=== PATIENT | female | born 1950 | race Caucasian/White ===

== ENCOUNTER → 2017-10-14 10:17 | Outpatient (CLI) | payer MEDICARE, SELFPAY ==
--- NOTE | 2017-10-14 10:23 | MM_ITS ---
MM Dig screening mamm BI w/CAD CAD Screening TECHNIQUE: Standard CC and MLO images were obtained. R2 CAD reviewed. ORDERING PHYSICIAN : Srinivasan Hsu PATIENT AGE: 67 years GENDER: Female COMPARISON: Previous mammograms: July 2011, March 2016, September 2016 INDICATION: Routine screening no hormones. No new complaints. Previous benign excisional biopsy left breast. Noncontributory family history ===== FINDINGS: Large low-density breast with no dominant mass.. Are scattered small calcifications a small grouping of calcifications but these appear to be fairly stable benign calcifications can be followed annually. RIGHT BREAST:No significant new findings.. Follow-up in one year adequate LEFT BREAST:No significant new findings. The minimal nodularity retroareolar left is similar to previous studies dating back to 2011 and as well as similar feature on 2016 2015 mammograms. Bilateral follow-up one year adequate IMPRESSION: No new findings of significant concern . Scattered small areas calcifications both breast appear to be fairly stable & appear to be benign character. Can be followed safely. Scattered minimal, small areas of density bilaterally similar to previous studies and can be followed. Would recommend, encourage and emphasized, annual follow-up mammography BI-RADS Category: 2 Benign Finding(s) RECOMMENDED FOLLOW-UP: 1YR - 1 YEAR FOLLOW-UP (A letter has been sent to the patient regarding results of the study.)
== END ==
PROVIDERS: PCP Internal Medicine; Visit Provider Internal Medicine
DX: Z12.31 Encounter for screening mammogram for malignant neoplasm of breast (principal)
CPT/HCPCS: 77067

== ENCOUNTER → 2018-04-25 08:24 | Outpatient (CLI) | payer MEDICARE, SELFPAY ==
[2018-04-25 09:41] LABS: Basophils # 0.1 K/mm3 (0-0.2); Basophils % 0.4 % (0.1-2.0); Eosinophils # 0.4 K/mm3 (0.0-0.4); Eosinophils % 3.4 % (0.1-12.0); Hematocrit 44.1 % (37.0-47.0); Hemoglobin 14.3 g/dL (12.2-16.2); Lymphocytes # 1.3 K/mm3 (0.7-4.5); Lymphocytes % 11.8 K/mm3 (10-50); Mean Corpuscular HGB Conc 32.4 g/dL (31.8-35.4); Mean Corpuscular Hemoglobin 31.2 pg (27.0-31.2); Mean Corpuscular Volume 96.5 fl (81-99); Mean Platelet Volume 8.4 fl (7.4-10.4); Monocytes # 0.4 K/mm3 (0.1-1.0); Monocytes % 3.4 % (1.7-9.3); Neutrophils # 9.2 K/mm3 (1.8-7.8); Platelet Count 272 K/mm3 (142-424); Red Blood Count 4.57 M/mm3 (4.20-5.40); Red Cell Distribution Width 13.1 % (11.5-17.5); White Blood Count 11.4 K/mm3 (4.8-10.8)
[2018-04-25 10:32] LABS: Alanine Aminotransferase 28 U/L (12-78); Albumin Level 3.4 gm/dL (3.4-5.0); Albumin/Globulin Ratio 1.1 (1.1-1.8); Alkaline Phosphatase 106 U/L (46-116); Anion Gap 15.3 mEq/L (5-15); Aspartate Amino Transferase 12 U/L (15-37); Bilirubin,Total 0.6 mg/dL (0.2-1.0); Blood Urea Nitrogen 27 mg/dL (7-18); Calcium 9.1 mg/dL (8.5-10.1); Carbon Dioxide 25 mmol/L (21.0-32.0); Chloride 105 mmol/L (98-107); Cholesterol 168 mg/dL (140-200); Creatinine,Serum 1.24 mg/dL (0.55-1.02); Estimated Glomerular Filt Rate 43 ml/min (>60); GFR (African American) 52 ML/MIN (>60); Glucose 107 mg/dL (74-106); HDL Cholesterol 56 mg/dL (29-89); LDL Cholesterol 97 mg/dL (0-130); Potassium 4.3 mmoL/L (3.5-5.1); Sodium 141 mmol/L (136-145); Total Protein,Serum 6.4 gm/dL (6.4-8.2); Triglycerides 73 mg/dL (30-200); VLDL Cholesterol 15 mg/dL (0-40)
== END ==
PROVIDERS: PCP Internal Medicine; Visit Provider Internal Medicine
DX: I10 Essential (primary) hypertension (principal); M16.0 Bilateral primary osteoarthritis of hip; M17.0 Bilateral primary osteoarthritis of knee; Z85.42 Personal history of malignant neoplasm of other parts of uterus; Z79.899 Other long term (current) drug therapy
CPT/HCPCS: 36415; 80053; 80061; 85025

== ENCOUNTER → 2018-10-17 08:21 | Outpatient (CLI) | payer MEDICARE, SELFPAY ==
--- NOTE | 2018-10-17 08:25 | MM_ITS ---
MM Dig screening mamm BI w/CAD ORDERING PHYSICIAN : Srinivasan Hsu PATIENT AGE: 68 years GENDER: Female COMPARISON: September 2017, 2016, March 2016 INDICATION: Routine: SCREENING . No hormones. No new complaints. Noncontributory family history TECHNIQUE: Standard CC and MLO images were obtained. R2 CAD reviewed. Due to the large volume breast, multiple CC and MLO views of both breasts were included to fully image both right and left breast additional nipple profile view right breast included FINDINGS: Mild to moderate residual fibroglandular elements with lower density large breasts bilaterally. Scattered small areas of calcifica fall, region tions in both breast appear to be benign and fairly round punctate calcifications with no significant new features. Bilateral follow-up in one year adequate RIGHT BREAST:No new areas of significant concern The small nodular density at the medial retroareolar region with no significant change since 2016 study. Minimal residual fibroglandular elements LEFT BREAST:No new areas of significant concern . IMPRESSION: No new areas of significant concern Bilateral follow-up in one year recommended BI-RADS Category: 2 Benign Finding(s) RECOMMENDED FOLLOW-UP: 1YR 1 YEAR FOLLOW-UP (A letter has been sent to the patient regarding results of the study.)
== END ==
PROVIDERS: PCP Internal Medicine; Visit Provider Internal Medicine
DX: Z12.31 Encounter for screening mammogram for malignant neoplasm of breast (principal)
CPT/HCPCS: 77067

== ENCOUNTER → 2020-05-19 08:46 | Outpatient (CLI) | payer MEDICARE, SELFPAY ==
--- NOTE | 2020-05-19 08:52 | MM_ITS ---
PROCEDURE: MM DIG SCREENING MAMM BI W/CAD Digital Breast Tomosynthesis Included CLINICAL INDICATION: SCREENING There is no personal or family history of breast cancer. COMPARISON: MG DMSB DIG MAMM-SCREEN MO W/CAD from 10/08/2016 MG SCBI MM Dig screening mamm BI w/CAD from 10/14/2017 MG SCBI MM Dig screening mamm BI w/CAD from 10/17/2018 TECHNIQUE: Standard CC and MLO images and 3D Tomosynthesis was obtained. R2 CAD reviewed. FINDINGS: Shattered fibroglandular densities are seen throughout both breast. There are scattered benign-appearing microcalcifications in each breast. There is a mole marker right breast. There is a stable asymmetric somewhat linear density deep to the nipple right breast. There is no suspicious lesion and no suspicious microcalcifications. IMPRESSION: Fibrofatty parenchyma with no suspicious lesions seen BI-RAD Category: 2 Benign Finding(s) FOLLOW-UP: 1YR 1 Year Follow-up (A letter has been sent to the patient regarding results of the study.) Dictated by: Dr. Jem Mckay MD 05/24/2020 13:39 Dr. Jem Mckay MD in [place] 05/24/2020 13:39
== END ==
PROVIDERS: PCP Internal Medicine; Visit Provider Internal Medicine
DX: Z12.31 Encounter for screening mammogram for malignant neoplasm of breast (principal)
CPT/HCPCS: 77063; 77067

== ENCOUNTER → 2021-04-18 09:46 | Outpatient (CLI) | payer MEDICARE, SELFPAY ==
[2021-04-18 16:26] LABS: Alanine Aminotransferase 20 U/L (12-78); Albumin/Globulin Ratio 1.7 (1.1-1.8); Alkaline Phosphatase 114 U/L (38-126); Anion Gap 16.4 mEq/L (5-15); Aspartate Amino Transferase 25 U/L (14-36); Bilirubin,Total 0.6 mg/dl (0.2-1.3); Blood Urea Nitrogen 17 mg/dl (7-17); Calcium 9.9 mg/dl (8.4-10.2); Carbon Dioxide 21 mmol/L (22.0-30.0); Chloride 106 mmol/L (98-107); Chol/HDL Ratio 1.8 (1-3.5); Cholesterol 149 mg/dl (140-200); Estimated Glomerular Filt Rate 55 ml/min (>60); GFR (African American) 66 ML/MIN (>60); Globulin 2.4 g/dL (1.3-3.2); Glucose 114 mg/dl (74-100); HDL Cholesterol 83 mg/dl (40-60); Potassium 4.4 mmoL/L (3.5-5.1); Sodium 139 mmol/L (136-145); Total Protein,Serum 6.4 g/dl (6.3-8.2); Triglycerides 88 mg/dl (30-150); Uric Acid 8.6 mg/dl (2.5-6.2); VLDL Cholesterol 18 mg/dL (0-40)
[2021-04-18 16:37] LABS: Direct LDL Cholesterol 57.13 mg/dL (100-129)
== END ==
PROVIDERS: Visit Provider Internal Medicine
DX: I10 Essential (primary) hypertension (principal); E78.5 Hyperlipidemia, unspecified; M10.9 Gout, unspecified
CPT/HCPCS: 36415; 80053; 80061; 84550

== ENCOUNTER → 2021-05-22 12:55 | Outpatient (CLI) | payer MEDICARE, SELFPAY ==
--- NOTE | 2021-05-22 12:58 | MM_ITS ---
PROCEDURE: MM DIG SCREENING MAMM BI W/CAD Digital Breast Tomosynthesis Included CLINICAL INDICATION: SCREENING There is no personal or family history of breast cancer. There has been a previous biopsy left breast for benign disease. COMPARISON: MG SCBI MM Dig screening mamm BI w/CAD from 10/14/2017 MG SCBI MM Dig screening mamm BI w/CAD from 10/17/2018 MG MM DIG SCREENING MAMM BI W/CAD from 05/19/2020 TECHNIQUE: Standard CC and MLO images and 3D Tomosynthesis was obtained. R2 CAD reviewed. FINDINGS: The breasts are large and diffuse fibroglandular densities are seen throughout both breasts. The findings are fairly symmetrical bilaterally. There are scattered benign-appearing microcalcifications in each breast. There is a mole marker near the axillary tail right breast. CAD markings were reviewed and they appear to be benign. There is no suspicious lesion in either breast and no suspicious microcalcifications. IMPRESSION: Fibrofatty parenchyma with no suspicious lesions seen BI-RAD Category: 2 Benign Finding(s) FOLLOW-UP: 1YR 1 Year Follow-up (A letter has been sent to the patient regarding results of the study.) Dictated by: Dr. Jem Mckay MD 05/24/2021 14:51 Dr. Jem Mckay MD in [place] 05/24/2021 14:51
== END ==
PROVIDERS: PCP Internal Medicine; Visit Provider Internal Medicine
DX: Z12.31 Encounter for screening mammogram for malignant neoplasm of breast (principal)
CPT/HCPCS: 77063; 77067

== ENCOUNTER → 2021-10-16 13:49 | Outpatient (CLI) | payer MEDICARE, SELFPAY ==
[2021-10-16 14:55] LABS: Basophils % 0.5 % (0.1-2.0); Eosinophils # 0.1 K/mm3 (0.0-0.4); Eosinophils % 1.2 % (0.1-12.0); Hematocrit 42.1 % (37.0-47.0); Hemoglobin 13.2 g/dL (12.2-16.2); Lymphocytes # 1.5 K/mm3 (0.7-4.5); Lymphocytes % 22.3 % (10-50); Mean Corpuscular HGB Conc 31.4 g/dL (31.8-35.4); Mean Corpuscular Hemoglobin 31.8 pg (27.0-31.2); Mean Corpuscular Volume 101.4 fl (81-99); Mean Platelet Volume 10.3 fl (7.4-10.4); Monocytes # 0.4 K/mm3 (0.1-1.0); Monocytes % 5.2 % (1.7-9.3); Neutrophils # 4.9 K/mm3 (1.8-7.8); Neutrophils % 70.8 % (37.0-80.0); Platelet Count 294 K/mm3 (142-424); Red Blood Count 4.16 M/mm3 (4.20-5.40); Red Cell Distribution Width 13.7 % (11.5-17.5); White Blood Count 6.9 K/mm3 (4.8-10.8)
[2021-10-16 15:49] LABS: Alanine Aminotransferase 19 U/L (12-78); Albumin/Globulin Ratio 2.1 (1.1-1.8); Alkaline Phosphatase 100 U/L (38-126); Anion Gap 13.4 mEq/L (5-15); Aspartate Amino Transferase 23 U/L (14-36); Bilirubin,Total 0.7 mg/dl (0.2-1.3); Blood Urea Nitrogen 22 mg/dl (7-17); Calcium 9.5 mg/dl (8.4-10.2); Carbon Dioxide 21 mmol/L (22.0-30.0); Chloride 107 mmol/L (98-107); Cholesterol 143 mg/dl (140-200); Estimated Glomerular Filt Rate 40 ml/min (>60); GFR (African American) 49 ML/MIN (>60); Globulin 1.9 g/dL (1.3-3.2); Glucose 98 mg/dl (74-100); HDL Cholesterol 70 mg/dl (40-60); Potassium 4.4 mmoL/L (3.5-5.1); Sodium 137 mmol/L (136-145); Total Protein,Serum 5.9 g/dl (6.3-8.2); Triglycerides 73 mg/dl (30-150); VLDL Cholesterol 15 mg/dL (0-40)
[2021-10-16 16:00] LABS: Direct LDL Cholesterol 56.23 mg/dL (100-129)
== END ==
PROVIDERS: Visit Provider Internal Medicine
DX: I10 Essential (primary) hypertension (principal); E78.5 Hyperlipidemia, unspecified; M17.0 Bilateral primary osteoarthritis of knee; M10.9 Gout, unspecified
CPT/HCPCS: 80053; 80061; 84550; 85025

== ENCOUNTER → 2022-04-16 11:47 | Outpatient (CLI) | payer MEDICARE, SELFPAY ==
[2022-04-16 14:22] LABS: Chloride 101 mmol/L (98-107); Potassium 3.9 mmoL/L (3.5-5.1); Sodium 138 mmol/L (136-145)
[2022-04-16 14:24] LABS: Alanine Aminotransferase 18 U/L (12-78); Alkaline Phosphatase 114 U/L (38-126); Aspartate Amino Transferase 23 U/L (14-36); Bilirubin,Total 0.4 mg/dl (0.2-1.3); Blood Urea Nitrogen 27 mg/dl (7-17); Estimated Glomerular Filt Rate 62 ml/min (>60); GFR (African American) 75 ML/MIN (>60)
[2022-04-16 14:25] LABS: Albumin Level 3.9 g/dl (3.5-5.0); Albumin/Globulin Ratio 1.9 (1.1-1.8); Anion Gap 14.9 mEq/L (5-15); Calcium 9.1 mg/dl (8.4-10.2); Carbon Dioxide 26 mmol/L (22.0-30.0); Chol/HDL Ratio 2.1 (1-3.5); Cholesterol 157 mg/dl (140-200); Globulin 2.1 g/dL (1.3-3.2); Glucose 80 mg/dl (74-100); HDL Cholesterol 74 mg/dl (40-60); Triglycerides 95 mg/dl (30-150); VLDL Cholesterol 19 mg/dL (0-40)
[2022-04-16 14:36] LABS: Direct LDL Cholesterol 63.39 mg/dL (100-129)
== END ==
PROVIDERS: PCP Internal Medicine; Visit Provider Internal Medicine
DX: I10 Essential (primary) hypertension (principal); E78.5 Hyperlipidemia, unspecified; M15.0 Primary generalized (osteo)arthritis
CPT/HCPCS: 80053; 80061

== ENCOUNTER → 2022-05-01 08:51 | Outpatient (CLI) | payer MEDICARE, SELFPAY ==
--- NOTE | 2022-05-01 08:55 | XR_ITS ---
FINAL REPORT TECHNIQUE: Bone mineral density was calculated of the lumbar spine and hip. CLINICAL HISTORY: .post menopausal FINDINGS: DEXA BONE DENSITY AXIAL SKELETON Using L1-4, the bone mineral density of the spine is 1.169 g/cm2, corresponding to T-score of 1.1. Using the left hip, the bone mineral density of the femoral neck is 0.885 g/cm2, corresponding to a T-score of 0.3. NOTE: T-score: Standard deviation compared with peak bone mass of young adult mean. *Following the recommendations of the International Society of Bone densitometry, classification of hip BMD is based on the lower of two T-scores; total hip or femoral neck. IMPRESSION: Normal bone mineral density of the lumbar spine and hip. Reviewed, Interpreted and Dictated by Bruce Marcelino III, MD Transcribed by Silvia Mckeon Authenticated and [facility]
== END ==
PROVIDERS: PCP Internal Medicine; Visit Provider Internal Medicine
DX: Z78.0 Asymptomatic menopausal state (principal)
CPT/HCPCS: 77080

== ENCOUNTER → 2022-05-23 15:07 | Outpatient (CLI) | payer MEDICARE, SELFPAY ==
--- NOTE | 2022-05-23 15:11 | MM_ITS ---
PROCEDURE INFORMATION: Exam: MG Bilateral Screening 3D Mammography Exam date and time: 05/23/2022 3:09 PM Age: 71 years old Clinical indication: Screening examination. History of benign left biopsy. No family history of breast cancer. TECHNIQUE: Imaging protocol: Bilateral Screening tomosynthesis and 2D mammography including computer-aided detection (CAD) when performed. COMPARISON: 1. MG MM DIG SCREENING MAMM BI W/CAD 05/22/2021 1:07 PM 2. MG MM DIG SCREENING MAMM BI W/CAD 05/19/2020 9:06 AM 3. MG SCBI MM Dig screening mamm BI w/CAD 10/17/2018 8:41 AM 4. MG SCBI MM Dig screening mamm BI w/CAD 10/14/2017 10:49 AM FINDINGS: MAMMOGRAPHY: Breast composition: There are scattered areas of fibroglandular density. Mass: None. Architectural distortion: None. Calcifications: Extensive bilateral calcifications, more secretory forms on the left than right, with no suspicious clusters. Asymmetric density: No developing asymmetry. Skin thickening: None. Axillary adenopathy: None. IMPRESSION: No mammographic evidence of malignancy. Annual screening is recommended unless otherwise clinically indicated. ASSESSMENT: BI-RADS Category 2: Benign
== END ==
PROVIDERS: PCP Internal Medicine; Visit Provider Internal Medicine
DX: Z12.31 Encounter for screening mammogram for malignant neoplasm of breast (principal)
CPT/HCPCS: 77063; 77067

== ENCOUNTER → 2022-10-15 11:50 | Outpatient (CLI) | payer MEDICARE, SELFPAY ==
[2022-10-15 13:24] LABS: Basophils # 0.1 K/mm3 (0-0.2); Basophils % 0.8 % (0.1-2.0); Eosinophils # 0.1 K/mm3 (0.0-0.4); Eosinophils % 0.8 % (0.1-12.0); Lymphocytes # 1.5 K/mm3 (0.7-4.5); Lymphocytes % 20.2 % (10-50); Mean Corpuscular HGB Conc 32.5 g/dL (31.8-35.4); Mean Corpuscular Hemoglobin 32.2 pg (27.0-31.2); Mean Corpuscular Volume 99.1 fl (81-99); Mean Platelet Volume 10.3 fl (7.4-10.4); Monocytes # 0.3 K/mm3 (0.1-1.0); Monocytes % 4.4 % (1.7-9.3); Neutrophils # 5.4 K/mm3 (1.8-7.8); Neutrophils % 73.8 % (37.0-80.0); Platelet Count 308 K/mm3 (142-424); Red Blood Count 4.34 M/mm3 (4.20-5.40); Red Cell Distribution Width 13.5 % (11.5-17.5); White Blood Count 7.3 K/mm3 (4.8-10.8)
[2022-10-15 13:51] LABS: Alanine Aminotransferase 14 U/L (12-78); Albumin Level 4.2 g/dl (3.5-5.0); Alkaline Phosphatase 111 U/L (38-126); Anion Gap 13.7 mEq/L (5-15); Aspartate Amino Transferase 23 U/L (14-36); Bilirubin,Total 0.9 mg/dl (0.2-1.3); Blood Urea Nitrogen 21 mg/dl (7-17); Calcium 9.4 mg/dl (8.4-10.2); Carbon Dioxide 26 mmol/L (22.0-30.0); Chloride 101 mmol/L (98-107); Chol/HDL Ratio 1.7 (1-3.5); Cholesterol 137 mg/dl (140-200); Estimated Glomerular Filt Rate 55 ml/min (>60); GFR (African American) 66 ML/MIN (>60); Globulin 2.1 g/dL (1.3-3.2); Glucose 95 mg/dl (74-100); HDL Cholesterol 81 mg/dl (40-60); Potassium 4.7 mmoL/L (3.5-5.1); Sodium 136 mmol/L (136-145); Total Protein,Serum 6.3 g/dl (6.3-8.2); Triglycerides 66 mg/dl (30-150); Uric Acid 8.1 mg/dl (2.5-6.2); VLDL Cholesterol 13 mg/dL (0-40)
[2022-10-15 14:01] LABS: Direct LDL Cholesterol 55.44 mg/dL (100-129)
== END ==
PROVIDERS: PCP Internal Medicine; Visit Provider Internal Medicine
DX: I10 Essential (primary) hypertension (principal); E78.5 Hyperlipidemia, unspecified; M10.9 Gout, unspecified; M15.0 Primary generalized (osteo)arthritis
CPT/HCPCS: 80053; 80061; 84550; 85025

== ENCOUNTER → 2023-04-17 16:59 | Outpatient (CLI) | payer MEDICARE, SELFPAY ==
[2023-04-17 20:49] LABS: Anion Gap 17.1 mEq/L (5-15); Blood Urea Nitrogen 16 mg/dl (7-17); Calcium 9.5 mg/dl (8.4-10.2); Carbon Dioxide 26 mmol/L (22.0-30.0); Chloride 100 mmol/L (98-107); Chol/HDL Ratio 1.7 (1-3.5); Cholesterol 149 mg/dl (140-200); Estimated Glomerular Filt Rate 62 ml/min (>60); GFR (African American) 74 ML/MIN (>60); Glucose 73 mg/dl (74-100); HDL Cholesterol 86 mg/dl (40-60); Potassium 5.1 mmoL/L (3.5-5.1); Sodium 138 mmol/L (136-145); Triglycerides 76 mg/dl (30-150); VLDL Cholesterol 15 mg/dL (0-40)
[2023-04-17 21:00] LABS: Direct LDL Cholesterol 62.98 mg/dL (100-129)
== END ==
PROVIDERS: PCP Internal Medicine; Visit Provider Internal Medicine
DX: I10 Essential (primary) hypertension (principal); E78.5 Hyperlipidemia, unspecified; M17.0 Bilateral primary osteoarthritis of knee; Z87.39 Personal history of other diseases of the musculoskeletal system and connective tissue
CPT/HCPCS: 80048; 80061

== ENCOUNTER → 2023-06-06 14:44 | Outpatient (CLI) | payer MEDICARE, SELFPAY ==
--- NOTE | 2023-06-06 14:52 | MM_ITS ---
PROCEDURE INFORMATION: Exam: MG Bilateral Screening 3D Mammography Exam date and time: 06/06/2023 2:42 PM Age: 72 years old Clinical indication: Screening examination TECHNIQUE: Imaging protocol: Bilateral Screening tomosynthesis and 2D mammography including computer-aided detection (CAD) when performed. COMPARISON: 1. MG MM DIG SCREENING MAMM BI W/CAD 05/23/2022 3:09 PM 2. MG MM DIG SCREENING MAMM BI W/CAD 05/22/2021 1:07 PM FINDINGS: MAMMOGRAPHY: Breast composition: There are scattered areas of fibroglandular density. Mass: None. Architectural distortion: Benign postoperative distortion in the left upper breast Calcifications: No suspicious calcifications. Asymmetric density: None. Skin thickening: None. Axillary adenopathy: None. IMPRESSION: No mammographic evidence of malignancy. Annual screening is recommended unless otherwise clinically indicated. ASSESSMENT: BI-RADS Category 2: Benign
== END ==
PROVIDERS: PCP Internal Medicine; Visit Provider Internal Medicine
DX: Z12.31 Encounter for screening mammogram for malignant neoplasm of breast (principal)
CPT/HCPCS: 77063; 77067

== ENCOUNTER 2023-10-16 11:54 | Outpatient (CLI) | payer MEDICARE, SELFPAY ==
[2023-10-16 12:35] LABS: Basophils % 0.5 % (0.1-2.0); Eosinophils % 0.5 % (0.1-12.0); Hematocrit 43.1 % (37.0-47.0); Hemoglobin 14.2 g/dL (12.2-16.2); Lymphocytes % 14.7 % (10-50); Mean Corpuscular HGB Conc 32.9 g/dL (31.8-35.4); Mean Corpuscular Hemoglobin 33.4 pg (27.0-31.2); Mean Corpuscular Volume 101.4 fl (81-99); Mean Platelet Volume 9.4 fl (7.4-10.4); Monocytes # 0.5 K/mm3 (0.1-1.0); Monocytes % 7.4 % (1.7-9.3); Neutrophils % 76.9 % (37.0-80.0); Platelet Count 228 K/mm3 (142-424); Red Blood Count 4.25 M/mm3 (4.20-5.40); Red Cell Distribution Width 13.6 % (11.5-17.5); White Blood Count 6.4 K/mm3 (4.8-10.8)
[2023-10-16 13:15] LABS: Albumin Level 4.1 g/dl (3.5-5.0); Albumin/Globulin Ratio 2.1 (1.1-1.8); Alkaline Phosphatase 108 U/L (38-126); Anion Gap 11.7 mEq/L (5-15); Bilirubin,Total 0.9 mg/dl (0.2-1.3); Blood Urea Nitrogen 9 mg/dl (7-17); Calcium 9.3 mg/dl (8.4-10.2); Carbon Dioxide 26 mmol/L (22.0-30.0); Chloride 98 mmol/L (98-107); Chol/HDL Ratio 2.1 (1-3.5); Cholesterol 146 mg/dl (140-200); Estimated Glomerular Filt Rate 70 ml/min (>60); GFR (African American) 85 ML/MIN (>60); Glucose 92 mg/dl (74-100); HDL Cholesterol 68 mg/dl (40-60); Potassium 3.7 mmoL/L (3.5-5.1); Sodium 132 mmol/L (136-145); Total Protein,Serum 6.1 g/dl (6.3-8.2); Triglycerides 60 mg/dl (30-150); Uric Acid 5.9 mg/dl (2.5-6.2); VLDL Cholesterol 12 mg/dL (0-40)
[2023-10-16 13:16] LABS: Alanine Aminotransferase 11 U/L (12-78); Aspartate Amino Transferase 23 U/L (14-36)
[2023-10-16 13:26] LABS: Direct LDL Cholesterol 51.23 mg/dL (100-129)
[2023-10-18 14:16] LABS: Vitamin B12 514 pg/mL (239-931)
== END 2023-10-16 23:59 ==
LOC: LAB 11:55
PROVIDERS: PCP Internal Medicine; Visit Provider Internal Medicine
DX: I10 Essential (primary) hypertension (principal); E78.5 Hyperlipidemia, unspecified; M10.9 Gout, unspecified; M17.0 Bilateral primary osteoarthritis of knee; M16.0 Bilateral primary osteoarthritis of hip; N19 Unspecified kidney failure; E66.9 Obesity, unspecified; Z68.34 Body mass index [BMI] 34.0-34.9, adult; Z85.42 Personal history of malignant neoplasm of other parts of uterus
CPT/HCPCS: 80053; 80061; 82607; 82746; 84550; 85025

== ENCOUNTER 2023-11-15 14:02 | Outpatient (CLI) | payer MEDICARE, SELFPAY ==
[2023-11-15 15:00] LABS: Sodium 135 mmol/L (136-145)
== END 2023-11-15 23:59 ==
LOC: LAB.DROPOF 14:03
PROVIDERS: PCP Internal Medicine; Visit Provider Internal Medicine
DX: E87.1 Hypo-osmolality and hyponatremia (principal)
CPT/HCPCS: 84295

== ENCOUNTER 2024-04-16 11:15 | Outpatient (CLI) | payer MEDICARE, SELFPAY ==
[2024-04-16 11:05] LABS: Albumin Level 4.2 g/dl (3.5-5.0); Chloride 104 mmol/L (98-107); Sodium 136 mmol/L (136-145)
[2024-04-16 11:08] LABS: Alanine Aminotransferase 11 U/L (12-78); Albumin/Globulin Ratio 2.2 (1.1-1.8); Aspartate Amino Transferase 22 U/L (14-36); Blood Urea Nitrogen 19 mg/dl (7-17); Carbon Dioxide 27 mmol/L (22.0-30.0); Estimated Glomerular Filt Rate 61 ml/min (>60); GFR (African American) 74 ML/MIN (>60); Globulin 1.9 g/dL (1.3-3.2); Total Protein,Serum 6.1 g/dl (6.3-8.2)
[2024-04-16 11:09] LABS: Alkaline Phosphatase 100 U/L (38-126); Bilirubin,Total 0.9 mg/dl (0.2-1.3); Calcium 10.3 mg/dl (8.4-10.2); Chol/HDL Ratio 1.8 (1-3.5); Cholesterol 145 mg/dl (140-200); Glucose 99 mg/dl (74-100); HDL Cholesterol 82 mg/dl (40-60); Triglycerides 44 mg/dl (30-150); VLDL Cholesterol 9 mg/dL (0-40)
[2024-04-16 11:20] LABS: Direct LDL Cholesterol 43.87 mg/dL (100-129)
[2024-04-16 13:15] LABS: Erythrocyte Sedimentation Rate 18 mm/hr (0-30)
[2024-04-16 13:17] LABS: Basophils % 0.7 % (0.1-2.0); Eosinophils % 0.6 % (0.1-12.0); Hematocrit 43.9 % (37.0-47.0); Hemoglobin 14.3 g/dL (12.2-16.2); Lymphocytes # 1.2 K/mm3 (0.7-4.5); Lymphocytes % 20.4 % (10-50); Mean Corpuscular HGB Conc 32.6 g/dL (31.8-35.4); Mean Corpuscular Hemoglobin 33.1 pg (27.0-31.2); Mean Corpuscular Volume 101.4 fl (81-99); Mean Platelet Volume 9.9 fl (7.4-10.4); Monocytes # 0.3 K/mm3 (0.1-1.0); Monocytes % 5.1 % (1.7-9.3); Neutrophils # 4.3 K/mm3 (1.8-7.8); Neutrophils % 73.1 % (37.0-80.0); Platelet Count 274 K/mm3 (142-424); Red Blood Count 4.33 M/mm3 (4.20-5.40); Red Cell Distribution Width 13.5 % (11.5-17.5); White Blood Count 5.9 K/mm3 (4.8-10.8)
== END 2024-04-16 23:59 | disposition home or self-care (01) ==
LOC: LAB.DROPOF 11:15
PROVIDERS: PCP Internal Medicine; Visit Provider Internal Medicine
DX: R68.84 Jaw pain (principal); M15.0 Primary generalized (osteo)arthritis; I10 Essential (primary) hypertension; E78.5 Hyperlipidemia, unspecified
CPT/HCPCS: 80053; 80061; 85025; 85651

== ENCOUNTER 2024-06-17 10:47 | Outpatient (CLI) | payer MEDICARE, SELFPAY ==
--- NOTE | 2024-06-17 10:48 | MM_ITS ---
PROCEDURE INFORMATION: Exam: MG Bilateral Screening 3D Mammography Exam date and time: 06/17/2024 10:42 AM Age: 73 years old Clinical indication: Screening. No family history of breast cancer. TECHNIQUE: Imaging protocol: Bilateral Screening tomosynthesis and 2D mammography including computer-aided detection (CAD) when performed. COMPARISON: 1. MG MM DIG SCREENING MAMM BI W/CAD 06/06/2023 2:42 PM 2. MG MM DIG SCREENING MAMM BI W/CAD 05/23/2022 3:09 PM 3. MG MM DIG SCREENING MAMM BI W/CAD 05/22/2021 1:07 PM 4. MG MM DIG SCREENING MAMM BI W/CAD 05/19/2020 9:06 AM FINDINGS: MAMMOGRAPHY: Breast composition: There are scattered areas of fibroglandular density. Mass: No suspicious mass. Architectural distortion: Stable left architectural distortion with history of benign left excisional surgery. Calcifications: No suspicious calcifications. Asymmetric density: None. Skin thickening: None. Axillary adenopathy: None. IMPRESSION: No mammographic evidence of malignancy. Annual screening is recommended unless otherwise clinically indicated. ASSESSMENT: BI-RADS Category 2: Benign.
== END 2024-06-17 23:59 | disposition home or self-care (01) ==
LOC: RAD 10:48
PROVIDERS: PCP Internal Medicine; Visit Provider Internal Medicine
DX: Z12.31 Encounter for screening mammogram for malignant neoplasm of breast (principal)
CPT/HCPCS: 77063; 77067

== ENCOUNTER 2024-10-15 09:00 | Outpatient (CLI) | payer MEDICARE, SELFPAY ==
[2024-10-15 17:29] LABS: Basophils % 0.2 % (0.1-2.0); Eosinophils % 0.3 % (0.1-12.0); Hematocrit 39.6 % (37.0-47.0); Hemoglobin 13.2 g/dL (12.2-16.2); Lymphocytes # 1.1 K/mm3 (0.7-4.5); Lymphocytes % 17.2 % (10-50); Mean Corpuscular HGB Conc 33.3 g/dL (31.8-35.4); Mean Corpuscular Hemoglobin 32.1 pg (27.0-31.2); Mean Corpuscular Volume 96.4 fl (81-99); Mean Platelet Volume 10.7 fl (7.4-10.4); Monocytes # 0.4 K/mm3 (0.1-1.0); Monocytes % 5.9 % (1.7-9.3); Neutrophils # 4.6 K/mm3 (1.8-7.8); Neutrophils % 75.9 % (37.0-80.0); Platelet Count 292 K/mm3 (142-424); Red Blood Count 4.11 M/mm3 (4.20-5.40); Red Cell Distribution Width 14.2 % (11.5-17.5); White Blood Count 6.1 K/mm3 (4.8-10.8)
[2024-10-15 18:33] LABS: Alanine Aminotransferase 14 U/L (12-78); Albumin Level 4.3 g/dl (3.5-5.0); Albumin/Globulin Ratio 2.3 (1.1-1.8); Alkaline Phosphatase 78 U/L (38-126); Anion Gap 13.5 mEq/L (5-15); Aspartate Amino Transferase 24 U/L (14-36); Bilirubin,Total 1.1 mg/dl (0.2-1.3); Blood Urea Nitrogen 18 mg/dl (7-17); Calcium 9.7 mg/dl (8.4-10.2); Carbon Dioxide 25 mmol/L (22.0-30.0); Chloride 101 mmol/L (98-107); Chol/HDL Ratio 1.8 (1-3.5); Cholesterol 133 mg/dl (140-200); Estimated Glomerular Filt Rate 61 ml/min (>60); GFR (African American) 74 ML/MIN (>60); Globulin 1.9 g/dL (1.3-3.2); Glucose 79 mg/dl (74-100); HDL Cholesterol 75 mg/dl (40-60); Potassium 4.5 mmoL/L (3.5-5.1); Sodium 135 mmol/L (136-145); Total Protein,Serum 6.2 g/dl (6.3-8.2); Triglycerides 67 mg/dl (30-150); VLDL Cholesterol 13 mg/dL (0-40)
[2024-10-15 18:45] LABS: Direct LDL Cholesterol 42.24 mg/dL (100-129)
== END 2024-10-15 23:59 | disposition home or self-care (01) ==
LOC: LAB.DROPOF 10-16 11:19
PROVIDERS: PCP Internal Medicine; Visit Provider Internal Medicine
DX: E78.5 Hyperlipidemia, unspecified (principal); I10 Essential (primary) hypertension; M15.0 Primary generalized (osteo)arthritis
CPT/HCPCS: 36415; 80053; 80061; 85025

== ENCOUNTER 2025-04-20 08:35 | Outpatient (CLI) | payer MEDICARE, SELFPAY ==
[2025-04-20 17:34] LABS: Hematocrit 39.8 % (37.0-47.0); Hemoglobin 13.0 g/dL (12.2-16.2); Immature Granulocytes % 0.5 %; Mean Corpuscular HGB Conc 32.7 g/dL (31.8-35.4); Mean Corpuscular Hemoglobin 31.6 pg (27.0-31.2); Mean Corpuscular Volume 96.6 fl (81-99); Nucleated Red Blood Cells % 0 %; Platelet Count 255 K/mm3 (142-424); Red Blood Count 4.12 M/mm3 (4.20-5.40); Red Cell Distribution Width-SD 50.0 fL; White Blood Count 5.7 K/mm3 (4.8-10.8)
[2025-04-20 18:32] LABS: Chloride 99 mmol/L (98-107); Potassium 4.5 mmoL/L (3.5-5.1); Sodium 135 mmol/L (136-145)
[2025-04-20 18:35] LABS: Alanine Aminotransferase 10 U/L (12-78); Alkaline Phosphatase 85 U/L (38-126); Aspartate Amino Transferase 24 U/L (14-36); Bilirubin,Total 0.9 mg/dl (0.2-1.3); Blood Urea Nitrogen 17 mg/dl (7-17); Calcium 9.9 mg/dl (8.4-10.2); Cholesterol 143 mg/dl (140-200); Creatinine,Serum 0.90 mg/dl (0.52-1.04); Estimated Glomerular Filt Rate 61 ml/min (>60); GFR (African American) 74 ML/MIN (>60); Glucose 79 mg/dl (74-100); Total Protein,Serum 6.3 g/dl (6.3-8.2); Triglycerides 60 mg/dl (30-150)
[2025-04-20 18:36] LABS: HDL Cholesterol 84 mg/dl (40-60)
[2025-04-20 19:36] LABS: Anion Gap 15.5 mEq/L (5-15); Carbon Dioxide 25 mmol/L (22.0-30.0)
[2025-04-20 20:09] LABS: Albumin Level 4.4 g/dl (3.5-5.0); Albumin/Globulin Ratio 2.3 (1.1-1.8); Globulin 1.9 g/dL (1.3-3.2)
--- OUTSIDE RECORDS SUMMARY | 2025-04-21 10:06 | XMS_ITS | Clinical Summary ---
Author Organization [facility] Address [address] [place] [address] Care Team Providers Care Senior Game Designer Name Role Phone Srinivasan Hsu MD Primary Care Provider [phone] Allergies Active Allergy Reactions Criticality Noted Date Comments Penicillin G Rash Low 2013 Penicillins Hives Medium 07/16/2017 Medications triamterene-hyd rochlorothiazid e (Maxzide-25) 37.5-25 MG tablet TAKE ONE-HALF TO 1 TABLET BY MOUTH EVERY DAY 1 Active famotidine (Pepcid) 20 MG tablet Take 1 tablet (20 mg) by mouth every night. 1 Active atorvastatin (Lipitor) 20 MG tablet Take 1 tablet (20 mg) by mouth every night. 1 Active HEMP OIL-VANILLYL BUTYL ETHER EX Apply 3,000 mg topically 1 (one) time each day. Active loratadine (Claritin) 10 MG tablet Take 1 tablet (10 mg) by mouth if needed. Active docusate sodium (Colace) 100 MG capsule Take 1 capsule (100 mg) by mouth 2 (two) times a day. Active Active Problems Problem Noted Date Diagnosed Date Endometrial cancer 03/19/2021 Cancer Staging:Clinical stage from 06/01/2013:FIGO Stage IB(cT1b, cN0, cM0) - Unsigned Resolved Problems Problem Noted Date Diagnosed Date Resolved Date Cervical cancer 03/19/2021 03/19/2021 Family History Medical History Relation Name Comments Conversions - Other Other No famil y history of cancer Relation Name Status Comments Other Social History Tobacco Use Types Packs/Day Years Used Date Smoking Tobacco: Never Passive Smoke Exposure: Never Smokeless Tobacco: Never Tobacco Cessation:Counseling Given: Not Answered Alcohol Use Standard Drinks/Week Comments Never 0 (1 standard drink = 0.6 oz pur e alcohol) PHQ-2 Answer Date Recorded Patient Health Questionnaire-2 Score 0 03/23/2024 PHQ-2A Answer Date Recorded Patient Health Questionnaire-2 Score 1 03/22/2023 Comments No Sex and Gender Information Value Date Recorded Sex Assigned at Not on file Legal Sex Female 8:43 PM EDT Gender Identity Not on file Sexual Orientation Not on file Last Filed Vital Signs Vital Sign Reading Time Taken Comments Blood Pressure 135/53 03/23/2024 2:03 PM EDT Pulse 100 03/23/2024 2:03 PM EDT Temperature 36.6 C (97.8 F) 03/23/2024 2:03 PM EDT Respiratory Rate 16 03/23/2024 2:03 PM EDT Oxygen Saturation 94% 03/23/2024 2:03 PM EDT Inhaled Oxygen Concentration - - Weight 102 kg (225 lb 5 oz) 03/23/2024 2:03 PM E DT Height 162.6 cm (5' 4 ) 03/23/2024 2:03 PM EDT Body Mass Index 38.67 03/23/2024 2:03 PM EDT Plan of Treatment Health Maintenance Due Date Last Done Comments [facility]-Bone Density Scan 1950 [facility]-Hepatitis C Screening 1950 [facility]-Medicare Annual Wellness (AWV) 1950 [facility]-Infant/Child/Adol SDOH Screenings 1950 [facility]-Obesity Intervention 1956 [facility]- SDOH Screenings 1968 [facility]-Adult SDOH Screenings 1968 [facility]-DTaP,Tdap,and Td Vaccines (1 - Tdap) 1969 CT Colonography 1995 Colonoscopy 1995 FIT-DNA 1995 FIT 1995 FOBT 1995 Sigmoidoscopy 1995 [facility]-Colorectal Cancer Screening 1995 [facility]-Breast Cancer Screening 2000 [facility]-Zoster Vaccines (2 of 2) 06/14/2022 04/19/2022 [facility]-Depression Screening 03/23/2025 03/23/2024, 02/27 [id number] Vaccine ( season) 2025 05/28/2023, 04/25/2022, 10/26/2021, Additional history exists [facility]-Influenza Vaccine (#1) 2025 [facility]-Pneumococcal Vaccine: 50+ Years Completed 04/19/2022 [facility]-RSV Vaccine: 60+ Years or Completed 05/21/2023 HPV Vaccines Aged Out No longer eligi ble based on patient's age to complete this topic [facility]-HIB Vaccines Aged Out No longer e ligible based on patient's age to complete this topic [facility]-Hepatitis A Vaccines Aged Out No longer eligible based on patient's age to complete this topic [facility]-IPV Vaccines Aged Out No longer e ligible based on patient's age to complete this topic [facility]-Rotavirus Vaccines Aged Out No lo nger eligible based on patient's age to complete this topic Insurance [facility] Care Teams Senior Game Designer Relationship Specialty Start Date End Date Srinivasan Hsu MD [address] [facility] [address] [place] [address] PCP - General 12/09/20
== END 2025-04-20 23:59 ==
LOC: LAB.DROPOF 04-21 09:57
PROVIDERS: PCP Internal Medicine; Visit Provider Internal Medicine
DX: E78.5 Hyperlipidemia, unspecified (principal); I10 Essential (primary) hypertension; B35.1 Tinea unguium; M15.0 Primary generalized (osteo)arthritis
CPT/HCPCS: 80053; 80061; 85025

== ENCOUNTER 2025-06-28 13:20 | Outpatient (CLI) | payer MEDICARE, SELFPAY ==
--- OUTSIDE RECORDS SUMMARY | 2025-05-12 10:30 | XMS_ITS | Encounter Summary ---
Author Organization Healthcare Address [address] [id number] Care Team Providers Care Roof Truss Builder Name Role Phone Srinivasan Hsu MD Primary Care Provider Encounter Details Date Type Department Care Team (Late st Contact Info) Description 05/12/2025 11:30 AM EDT Office Visit [facility] [address] [place] [address] Jose MariaLashay S, MEDICAL RECORDS RECEPTIONIST [address] [facility] [address] [place] [address] Endometrial cancer (Primary Dx) Social History Tobacco Use Types Packs/Day Years Used Date Smoking Tobacco: Never Passive Smoke Exposure: Never Smokeless Tobacco: Never Alcohol Use Standard Drinks/Week Comments Never 0 (1 standard drink = 0.6 oz pur e alcohol) PHQ-2 Answer Date Recorded Patient Health Questionnaire-2 Score 0 05/12/2025 PHQ-2A Answer Date Recorded Patient Health Questionnaire-2 Score 1 03/22/2023 Comments No Sex and Gender Information Value Date Recorded Sex Assigned at Not on file Legal Sex Female 8:43 PM EDT Gender Identity Not on file Sexual Orientation Not on file documented as of this encounter Last Filed Vital Signs Vital Sign Reading Time Taken Comments Blood Pressure 138/82 05/12/2025 11:20 AM EDT Pulse 105 05/12/2025 11:20 AM EDT Temperature 36.4 C (97.6 F) 05/12/2025 11:20 AM EDT Respiratory Rate 16 05/12/2025 11:20 AM EDT Oxygen Saturation 96% 05/12/2025 11:20 AM EDT Inhaled Oxygen Concentration - - Weight 106 kg (233 lb 4 oz) 05/12/2025 11:20 AM EDT Height 170.2 cm (5' 7 ) 05/12/2025 11:20 AM EDT Body Mass Index 36.53 05/12/2025 11:20 AM EDT documented in this encounter Functional Status * Over the past 2 weeks, how often have you been bothered by any of the following problems? Question Answer Date of Assessment Author Little interest or pleasure in doing things Not at all 05/12/2025 11:25 AM EDT Jean Paul Whitehead Feeling down, depressed, or hopeless Not at all 05/12/2025 11:25 AM EDT Jean Paul Whitehead Patient Health Questionnaire -2 Score 0 05/12/2025 11:25 AM EDT Jean Paul Whitehead documented as of this encounter Miscellaneous Notes * Progress Notes - Lashay Moise, MEDICAL RECORDS RECEPTIONIST - 05/12/2025 11:30 AM EDT Patient ID: Sarah Briggs is a 74 y.o. female. Referring Physician: No referring provider defined for this encounter. Primary Care Provider: Srinivasan Hsu MD History of Present Illness: Patient denies any updates to her medical hx. She denies pelvic pain, VB, change in bowel, or bladder. She is walking with a cane, she fell 6 months ago. She has a mmg scheduled in September. Review of Systems Constitutional: Negative for appetite change and unexpected weight change. Respiratory: Negative for cough and shortness of breath. Gastrointestinal: Negative for abdominal distention, abdominal pain, constipation, diarrhea, nauseaand vomiting. Genitourinary: Negative for difficulty urinating, pelvic pain and vaginal bleeding. Musculoskeletal: Positive for gait problem. Neurological: Positive for gait problem. Cancer Staging Endometrial cancer Staging form: Corpus Uteri - Carcinoma and Carcinosarcoma, AJCC 8th Edition - Clinical stage from 06/01/2013: FIGO Stage IB (cT1b, cN0, cM0) - Unsigned Oncology History Endometrial cancer 06/01/2013 Surgery RAJENDRA BSO: 4.2 cm tumor with 71% myometrial invasion, no LVSI Stage IB grade 2 EAC 2013 Surgery Pelvic and periaortic lymph node samplin/12 No adjuvant treatment Objective Physical Exam: Vital Signs for this encounter: BSA: 2.24 meters squared Visit Vitals BP 138/82 (BP Location: Left arm, Patient Position: Sitting, BP Cuff Size: Large adult) Pulse 105 Temp 36.4 ??C (97.6 ??F) (Temporal) Resp 16 Ht 1.702 m (5' 7 ) Wt 106 kg (233 lb 4 oz) LMP 07/29/1998 (Approximate) SpO2 96% BMI 36.53 kg/m?? OB Status Hysterectomy Smoking Status Never BSA 2.24 m?? Physical Exam Vitals and nursing note reviewed. Exam conducted with a financial compliance examiner present. Constitutional: Appearance: She is obese. HENT: Head: Normocephalic. Cardiovascular: Rate and Rhythm: Tachycardia present. Abdominal: General: Abdomen is flat. Palpations: Abdomen is soft. Genitourinary: General: Normal vulva. Exam position: Lithotomy position. Vagina: Normal. No vaginal discharge or lesions. Uterus: Absent. Adnexa: Right: No mass or tenderness. Left: No mass or tenderness. Comments: No concerns. Musculoskeletal: General: Normal range of motion. Skin: General: Skin is warm and dry. Findings: No rash. Comments: Neurological: Mental Status: She is alert and oriented to person, place, and time. Psychiatric: Mood and Affect: Mood normal. Behavior: Behavior normal. Behavior is cooperative. Performance Status: Asymptomatic Pain Scale: 0 Assessment/Plan Pap Smear was not collected today. Problem 1: Stage IB grade 2 EAC Assessment and plan 1: KULWANT on exam, RTC 1 year Problem 2: Multiple medical co-morbidities (HTN, arthrtitis, constipation, gout) Assessment and plan 2: Continue medical management Problem 3: Obesity, BMI 36.53 Assessment and plan 3: Affects all aspects of care Problem 4: Health Maintenance Assessment and Plan 4: MMG in September scheduled. I personally spent a total of 20 minutes on this encounter. This time includes face to face with patient, exam, counseling and discussion and/or coordination of care. CLARI Manzano [facility] GYNECOLOGY [address] [place] [facility] [address] Dept: [phone] Dept Loc: [phone] documented in this encounter Plan of Treatment Upcoming Encounters Date Type Department Care Team (Late st Contact Info) Description 05/18/2026 11:00 AM EDT Office Visit [facility] [address] [place] [address] Lashay Moise APRN [address] [facility] [address] [place] [address] documented as of this encounter Visit Diagnoses Diagnosis Endometrial cancer- Primary Malignant neoplasm of corpus uteri, except isthmus documented in this encounter Additional Health Concerns Assessment Noted Time A fall risk assessment has been complete d for the patient 05/12/2025 11:27 AM EDT documented as of this encounter Care Teams Roof Truss Builder Relationship Specialty Start Date End Date Srinivasan Hsu MD [facility] [address] [place] [address] PCP - General 12/09/20 documented as of this encounter
--- OUTSIDE RECORDS SUMMARY | 2025-06-28 13:23 | XMS_ITS | Encounter Summary ---
Author Organization [facility] Address [address] [id number] Care Team Providers Care Lace Stripper Name Role Phone Srinivasan Hsu MD Primary Care Provider [phone] Encounter Details Date Type Department Care Team (Latest Contact Info) Description 05/05/2025 Travel Social History Tobacco Use Types Packs/Day Years [...] on file documented as of this encounter Plan of Treatment Upcoming Encounters Date Type Department Care Team (Late st Contact Info) Description 05/18/2026 11:00 AM EDT Office Visit [facility] [address] [place] [address] Jose Maria, Lashay S, SHADE MATCHER [address] [facility] [address] [place] [address] documented as of this encounter Visit Diagnoses Not on filedocumented in this encounter Additional Health Concerns Assessment Noted Time A fall risk assessment has been complete d for the patient 03/23/2024 2:10 PM EDT documented as of this encounter Care Teams Lace Stripper Relationship Specialty Start Date End Date Srinivasan Hsu MD [address] [place] [address] PCP - General 12/09/20 documented as of this encounter
--- OUTSIDE RECORDS SUMMARY | 2025-06-28 13:23 | XMS_ITS | Encounter Summary ---
Author Organization [facility] Address [address] [place] [address] Care Team Providers Care Banquet Server On Call Name Role Phone Srinivasan Hsu MD Primary Care Provider [phone] Encounter Details Date Type Department Care Team (Latest Contact Info) Description 05/12/2025 Travel Social History Tobacco Use Types Packs/Day [...] on file documented as of this encounter Functional Status * Over the [...] Paul Whitehead documented as of this encounter Plan of Treatment Upcoming Encounters Date Type Department Care Team ( st Contact Info) Description 05/18/2026 11:00 AM EDT Office Visit [facility] [address] [place] [address] Lashay Moise S, DIRECTOR OF FIELD COORDINATION [address] [facility] [address] [facility] [address] [place] [address] documented as of this encounter Visit Diagnoses Not on filedocumented in this encounter Additional Health Concerns Assessment Noted Time A fall risk assessment has been complete d for the patient 05/12/2025 11:27 AM EDT documented as of this encounter Care Teams Banquet Server On Call Relationship Specialty Start Date End Date Srinivasan Hsu MD [address] [place] [address] PCP - General 12/09/20 documented as of this encounter
--- OUTSIDE RECORDS SUMMARY | 2025-06-28 13:23 | XMS_ITS | Clinical Summary ---
Author Organization [facility] Address [address] [place] [address] Care Team Providers Care Health Service Coordinator Name Role Phone Srinivasan Hsu MD Primary Care Provider [phone] Allergies Active Allergy Reactions Criticality Noted Date [...] Date Resolved Date Cervical cancer 03/19/2021 03/19/2021 Encounters Date Type Department Care Team Description 05/12/2025 11:30 AM EDT Office Visit [facility] Gynecology [address] [place] [address] Lashay Moise APRN Endometrial cancer (Primary Dx) 05/12/2025 Travel 05/05/2025 Travel from Last 3 Months Family History Medical History Relation Name Comments [...] Mass Index 36.53 05/12/2025 11:20 AM EDT Plan of Treatment Upcoming Encounters Date Type Department Care Team (Late st Contact Info) Description 05/18/2026 11:00 AM EDT Office Visit [facility] Gynecology [address] [place] [address] Lashay Moise APRN [address] [place] [address] Health Maintenance Due Date Last Done Comments [facility]-Bone Density Scan 1950 [facility]-Hepatitis C Screening 1950 [facility]-Medicare Annual Wellness (AWV) 1950 [facility]-Infant/Child/Adol SDOH Screenings 1950 [facility]-Obesity Intervention 1956 [facility]- SDOH Screenings 1968 [facility]-Adult SDOH Screenings 1968 [facility]-DTaP,Tdap,and Td Vaccines (1 - Tdap) 1969 CT Colonography 1995 Colonoscopy 1995 FIT-DNA 1995 FIT 1995 FOBT 1995 Sigmoidoscopy 1995 [facility]-Colorectal Cancer Screening 1995 [facility]-Breast Cancer Screening 2000 [facility]-Zoster Vaccines (2 of 2) 06/14/2022 04/19/2022 [id number] Vaccine ( season) 2025 05/28/2023, 04/25/2022, 10/26/2021, Additional history exists [facility]-Influenza Vaccine (#1) 2025 04/30/2024 [facility]-Depression Screening 05/12/2026 05/12/2025, 02/27 [facility]-Pneumococcal Vaccine: 50+ Years Completed 04/19/2022 [facility]-RSV [...] patient's age to complete this topic Insurance [facility] MEDICARE Care Teams Health Service Coordinator Relationship Specialty Start Date End Date Srinivasan Hsu MD [address] [place] [address] [address] [place] [address] PCP - General 12/09/20
--- NOTE | 2025-06-28 13:30 | MM_ITS ---
PROCEDURE INFORMATION: Exam: MG Bilateral Screening 3D Mammography Exam date and time: 06/28/2025 1:23 PM Age: 74 years old Clinical indication: Screening examination TECHNIQUE: Imaging protocol: Bilateral Screening tomosynthesis and 2D mammography including computer-aided detection (CAD) when performed. COMPARISON: MG MM DIG SCREENING MAMM BI W/CAD 06/17/2024 10:42 AM FINDINGS: MAMMOGRAPHY: Breast composition: There are scattered areas of fibroglandular density. Mass: None. Architectural distortion: no new or suspicious architectural distortion Calcifications: No suspicious calcifications. Asymmetric density: None. Skin thickening: None. Axillary adenopathy: None. IMPRESSION: No mammographic evidence of malignancy. Annual screening is recommended unless otherwise clinically indicated. ASSESSMENT: BI-RADS Category 1: Negative.
== END 2025-06-28 23:59 | disposition home or self-care (01) ==
LOC: RAD 13:20
PROVIDERS: PCP Internal Medicine; Visit Provider Internal Medicine
DX: Z12.31 Encounter for screening mammogram for malignant neoplasm of breast (principal); R92.323 Mammographic fibroglandular density, bilateral breasts
CPT/HCPCS: 77063; 77067